=== PATIENT | male | born 1930 | race Caucasian/White ===

== ENCOUNTER 2019-06-05 07:46 | Inpatient (IN) | payer OTHER ==
[~2019-06-05] VITALS: Ht 160 cm; Wt 58.1 kg
[2019-06-05] VITALS (58 sets, daily range): BP systolic 65–141; BP diastolic 30–78
[~2019-06-05 07:46] MED LIST: AEROBID7 GM INH; ALLOPURINOL 10100 M2 PO; AMLODIPINE BESY10 MG PO; ASPIRIN81 M2 PO; AUGMENTIN 875875 M1; AZITHROMYCIN 2250 MG PO; CALAN; CARVEDILOL12.5 MG PO; CEFUROXIME250 MG PO; CLARITIN10 MG PO; CLONIDINE; COLACE 100 MG100 MG PO; COLACE100 MG; COLACE100 MG PO; COZAAR100 MG PO; FERROUS GLUCON324 M3 PO; FLAGYL500 MG; FLONASE 0.05%50 MCG NASAL; FOLIC ACID1 MG PO; HYDROCODON-ACE1 EACH PO; IBUPROFEN 400400 M2 PO; LASIX 40 MG TAB40 M2 PO; LISINOPRIL; Melatonin 5MG CAPSUL PO; NASAL SPRAY30 M1; NORCO 5-325 TA1 EACH; NYSTATIN-TRIAMC15 G1 TOP; OCUVITE TABLET1 EAC1 PO; OMEPRAZOLE; OMEPRAZOLE 20 M20 M1 PO; PRED FORTE 1% EY5 M1 OPHTHALMIC; PREDNISONE 20 M20 MG PO; PROAIR HFA8.5 GM INH; PROMACTA25 MG PO; SINGULAIR; SINGULAIR 10 MG10 M1 PO; STIOLTO RESPIMAT4 GM; TRAMADOL 50 MG50 MG PO; VERAPAMIL ER240 MG PO; VITAMIN B-12500 MCG PO; ZESTRIL20 MG
[2019-06-05 08:48] LABS: MCH 35.7 pg (26.0-34.0); MCHC 30.4 g/dL (28.0-37.0); MCV 117.3 fL (80.0-100.0); MPV 9.8 fl. (7.2-11.1); NUCLEATED RBCS 0 /100WBC; PLATELET COUNT* 211 thou/uL (150-400); RBC 1.12 mil/uL (4.50-6.00); RDW-CV 25.1 % (10.5-14.5); WBC 11.8 thou/uL (4.0-11.0)
[2019-06-05 08:57] LABS: CALCIUM 8.1 mg/dL (8.5-10.1); POTASSIUM 5.1 mmol/L (3.5-5.1)
[2019-06-05 08:58] LABS: INR 1.4; PROTIME 14.1 Seconds (9.20-11.50)
[2019-06-05 08:59] LABS: HEMATOCRIT 13.2 % (42.0-52.0)
[2019-06-05 09:13] LABS: MAGNESIUM 2.3 mg/dL (1.8-2.4); TOTAL BILIRUBIN 4.5 mg/dL (<0.1-1.0); TOTAL PROTEIN 7.4 g/dL (6.4-8.2)
[2019-06-05 09:15] LABS: TROPONIN-I LEVEL 0.61 ng/mL (<0.06)
[2019-06-05 09:44] LABS: URINE BILIRUBIN NEGATIVE (Negative); URINE BLOOD NEGATIVE (Negative); URINE CLARITY CLEAR; URINE COLOR YELLOW; URINE GLUCOSE-RANDOM NEGATIVE (Negative); URINE KETONES NEGATIVE (Negative); URINE LEUKOCYTES-REFLEX NEGATIVE (Negative); URINE NITRITE-REFLEX NEGATIVE (Negative); URINE PROTEIN NEGATIVE (Negative); URINE UROBILINOGEN 0.2 E.U./dl (0.2-1.0)
--- NOTE | 2019-06-05 10:35 | NUR ---
PICC LINE PLACED BY RACHEL SMILEY
[2019-06-05 10:55] LABS: ABSOLUTE LYMPHOCYTES 0.2 thou/uL (0.8-5.3); ABSOLUTE MONOCYTES 0.1 thou/uL (0.0-1.2); ABSOLUTE NEUTROPHILS 11.4 thou/uL (1.6-8.1); MYELOCYTES 2 %; PLATELET ESTIMATE ADEQUATE
[2019-06-05 10:56] LABS: HYPOCHROMASIA 3+; POLYCHROMASIA 1+
[2019-06-05 10:57] LABS: ANISOCYTOSIS 3+; MACROCYTES Occasional; POIKILOCYTOSIS 1+
[2019-06-05 14:17] LABS: HEMATOCRIT 22.6 % (42.0-52.0); HEMOGLOBIN 7.4 gm/dL (14.0-18.0)
--- NOTE | 2019-06-05 14:57 | NUR ---
RIGHT BASILIC VESSEL ACCESSED FOR TRIPLE LUMEN PICC. LINE PRE-TRIMMED TO 35CM AND ADVANCED TO THE ZERO CASSANDRA WITH NO RESISTANCE MET. UPPER ARM CIRCUMFERENCE ABOVE INSERTION SITE= 9". SHERLOCK MAGNET AND 3CG CONFIRMATION OF TIP TERMINATING AT THE CAVOATRIAL JUNCTION APPRECIATED. STYLET REMOVED, LINE FLUSHED AND INSERTINO SITE DRESSED. REPORT GIVEN TO JOVANNA RAMOS.
[2019-06-05 16:04] LABS: ABSOLUTE LYMPHOCYTES 0.3 thou/uL (0.8-5.3); ABSOLUTE NEUTROPHILS 15.3 thou/uL (1.6-8.1); BASOPHILS 0.1 %; HEMATOCRIT 21.6 % (42.0-52.0); LYMPHOCYTES 1.8 %; MCHC 32.2 g/dL (28.0-37.0); MONOCYTES 11.1 %; NUCLEATED RBCS 1 /100WBC; PLATELET COUNT* 215 thou/uL (150-400); RBC 2.11 mil/uL (4.50-6.00); RDW-CV 19.9 % (10.5-14.5); WBC 17.6 thou/uL (4.0-11.0)
[2019-06-05 16:09] LABS: MCV 102.4 fL (80.0-100.0)
--- NOTE | 2019-06-05 17:28 | 2DMMODE ---
[place] [address] 2 D/M-MODE ECHOCARDIOGRAM Name: RAFA PEÑA Room: [address] IN [facility]#: [id number] Admission: 06/05/19 Attend Phys: Darin Styles Discharge: Date of : [birth year] Date of Service: 06/05/19 1728 Report #: [id number] THIS REPORT FOR: //name// APPROVED REPORT Study performed: 06/05/2019 14:11:09 EXAM: Comprehensive 2D, Doppler, and color-flow Echocardiogram Patient Location: Bedside BSA: 1.57 HR: 71 bpm BP: 141/55 mmHg Other Information Study Quality: Technically Difficult Technically limited study due to inability to position patient, uncooperative patient. Indications Dyspnea Elevated Troponin 2D Dimensions IVSd: 8.40 (7-11mm) LVOT Diam: 16.16 (18-24mm) LVDd: 49.03 mm PWd: 9.50 (7-11mm) Ascending Ao: 24.14 (22-36mm) LVDs: 31.39 (25-40mm) Aortic Root: 24.40 mm Volumes Left Atrial Volume (Systole) LA ESV Index: 38.70 mL/m2 Aortic Valve AoV Peak Andrew.: 1.02 m/s AO Peak Gr.: 4.15 mmHg LVOT Max P.98 mmHg AO Mean Gr.: 1.73 mmHg LVOT Mean P.86 mmHg LVOT Max V: 0.70 m/s AO V2 VTI: 19.53 cm LVOT Mean V: 0.43 m/s MIGUE (VTI): 1.77 cm2 LVOT V1 VTI: 16.86 cm Mitral Valve E/A Ratio: 1.71 MV Decel. Time: 134.36 [place] [address] 2 D/M-MODE ECHOCARDIOGRAM Name: RAFA PEÑA Room: [address] IN [facility]#: [id number] Admission: 06/05/19 Attend Phys: Darin Styles Discharge: Date of : [birth year] Date of Service: 06/05/19 1728 Report #: [id number] MV E Max Andrew.: 1.13 m/s MV PHT: 38.97 ms MVA (PHT): 5.65 cm2 TDI E/Lateral E': 16.14 E/Medial E': 8.07 Medial E' Andrew.: 0.14 m/s Lateral E' Andrew.: 0.07 m/s Pulmonary Valve PV Peak Andrew.: 0.98 m/s PV Peak Gr.: 3.82 mmHg Tricuspid Valve RAP Estimate: 5.00 mmHg TR Peak Gr.: 63.76 mmHg RVSP: 68.76 mmHg PA Pressure: 68.76 mmHg Left Ventricle The left ventricle is normal size. septal hypokinesis is noted There is normal left ventricular wall thickness. Left ventricular systolic function is mildly decreased. LVEF is 45-50%. Right Ventricle The right ventricle is normal size. The right ventricular systolic function is normal. Atria Left atrium is mildly dilated. Interatrial septum not well visualized. Right atrium is dilated. Aortic Valve Mild aortic valve sclerosis. No aortic regurgitation is present. There is no aortic valvular stenosis. Mitral Valve Moderate mitral annular calcification. Mild mitral regurgitation. No evidence of mitral valve stenosis. Tricuspid Valve The tricuspid valve is normal in structure. Moderate tricuspid regurgitation. Moderate pulmonary hypertension. Pulmonic Valve The pulmonary valve is normal in structure. Mild to moderate [place] [address] 2 D/M-MODE ECHOCARDIOGRAM Name: RAFA PEÑA Room: [address]#: [id number] Admission: 06/05/19 Attend Phys: Darin Styles Discharge: Date of : [birth year] Date of Service: 06/05/19 1728 Report #: [id number] Great Vessels The aortic root is normal in size. IVC is not visualized. Pericardium Mild posterior pericardial effusion. <Conclusion> The left ventricle is normal size. There is normal left ventricular wall thickness. Left ventricular systolic function is mildly decreased. LVEF is 45-50%. The right ventricle is normal size. Left atrium is mildly dilated. Mild aortic valve sclerosis. No aortic regurgitation is present. There is no aortic valvular stenosis. Moderate mitral annular calcification. Mild mitral regurgitation. The tricuspid valve is normal in structure. Moderate tricuspid regurgitation. Moderate pulmonary hypertension. Mild posterior pericardial effusion. septal hypokinesis is noted <ELECTRONICALLY SIGNED> By: Brenden Green MD, [facility] 06/05/191727 27 27 Brenden Green MD, FAC /INF
--- NOTE | 2019-06-05 18:10 | NUR ---
VSS.COMMERCIAL LITIGATION PARALEGAL IN PLACE NOW TRACING SR.PT REMAINS ON 2L O2 NC.RIGHT UPPER ARM PICC PATENT WITH IVF INFUSING PER ORDERS.TITRATED OFF LEVOPHED THROUGHOUT SHIFT.PT RECEIVED BLOOD TRANSFUSION X2 THIS SHIFT.DONALD SECURE AND PATENT.ECHO COMPLETED.NO C/O PAIN.PT IS NOW ALERT,CALM ,AND COOPERATIVE BUT HARD OF HEARING.PT AND FAMILY INFORMED OF PLAN OF CARE AND COMMUNICATES UNDERSTANDING.HOURLY ROUNDING COMPLETED.CALL LIGHT AND FALL PRECAUTIONS IN PLACE.WILL CONTINUE TO MONITOR FOR DURATION OF SHIFT.
[2019-06-06] VITALS (23 sets, daily range): BP systolic 98–124; BP diastolic 39–60
[2019-06-06 03:52] LABS: ABSOLUTE LYMPHOCYTES 0.2 thou/uL (0.8-5.3); ABSOLUTE MONOCYTES 0.1 thou/uL (0.0-1.2); ABSOLUTE NEUTROPHILS 11.2 thou/uL (1.6-8.1); BASOPHILS 0.1 %; LYMPHOCYTES 1.9 %; MCHC 31.9 g/dL (28.0-37.0); MCV 103.2 fL (80.0-100.0); MONOCYTES 1.1 %; MPV 10.4 fl. (7.2-11.1); NUCLEATED RBCS 1 /100WBC; PLATELET COUNT* 202 thou/uL (150-400); POLYS 96.9 %; RBC 2.13 mil/uL (4.50-6.00); RDW-CV 21.2 % (10.5-14.5); WBC 11.5 thou/uL (4.0-11.0)
[2019-06-06 04:17] LABS: ALBUMIN 2.7 g/dL (3.4-5.0); CALCIUM 7.2 mg/dL (8.5-10.1); CREATININE 2.6 mg/dL (0.6-1.3); POTASSIUM 4.7 mmol/L (3.5-5.1); TOTAL BILIRUBIN 2.1 mg/dL (<0.1-1.0); TOTAL PROTEIN 6.4 g/dL (6.4-8.2)
[2019-06-06 04:25] LABS: ALBUMIN 2.6 g/dL (3.4-5.0); CALCIUM 6.8 mg/dL (8.5-10.1); CREATININE 2.6 mg/dL (0.6-1.3); MAGNESIUM 2.4 mg/dL (1.8-2.4); PHOSPHORUS* 7.1 mg/dL (2.5-4.9); POTASSIUM 4.3 mmol/L (3.5-5.1)
--- NOTE | 2019-06-06 09:05 | CON ---
[address] [address] CONSULTATION Name: RAFA PEÑA Room: [address] IN [facility]#: [id number] Admission: 06/05/19 Attend Phys: Tejinder Cheema Discharge: Date of : [birth year] Report #: [id number] THIS REPORT FOR: //name// CC: FAM unknown [facility] Darin Styles DATE OF SERVICE: 06/05/2019 HEMATOLOGY/ONCOLOGY CONSULTATION REASON FOR CONSULTATION: Severe anemia. SUBJECTIVE: This is an 89-year-old male who is being evaluated for severe anemia. Most recent labs on 05/26/2019 was 5.0. However, back in between November and August, his hemoglobin has been stable around 9 g/dL per the family. No records were available. The patient was getting treatment which the family describes as chemotherapy injections 5 days in every 4 weeks for chronic leukemia. 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 The patient was not able to communicate during the visit today. He has been having major pain. He is receiving his second blood transfusion. Per the family, no obvious GI bleed has been noticed. He was found unresponsive per the . Currently, he is on Levophed. REVIEW OF SYSTEMS: Unable to be obtained. PAST MEDICAL HISTORY: Chronic leukemia, ischemic cardiomyopathy, renal failure. MEDICATIONS: Per admission list. SOCIAL HISTORY: No smoking, no alcohol abuse, no drug abuse. PAST SURGICAL HISTORY: Perforated diverticulitis, colostomy, hypertension, asthma, prostate cancer, appendectomy, hernia repair. ALLERGIES: No known allergies. FAMILY HISTORY: Noncontributory. PHYSICAL EXAMINATION: VITAL SIGNS: Today, temperature is 36.4, pulse 71, respirations 27, blood pressure is 141/55, SpO2 was 95% on 2 liters. GENERAL: The patient was lying in bed. He was having significant pain. He was not opening his eyes. Not responding to verbal commands. LUNGS: Positive crackles and coarse breathing sounds. HEART: Regular rate and S1, S2 [place] [address] CONSULTATION Name: RAFA PEÑA Room: [address] IN [facility]#: [id number] Admission: 06/05/19 Attend Phys: Tejinder Cheema Discharge: Date of : [birth year] Report #: [id number] ABDOMEN: Soft, nontender. EXTREMITIES: No edema, no cyanosis, no clubbing. LABORATORY DATA: Today 11.8, hemoglobin is 4.0, MCV is 117, and platelets 211. Differential showed anisopoikilocytosis with macrocytosis. PT is 14.1. Creatinine is 3.0. Lactic acid 7.4, bilirubin is 4.5, AST is 289, ALT is 183. IMAGING: A CT abdomen showed no acute intraabdominal or pelvic process is seen. Chest x-ray, right basilar infiltrates. Pulmonary venous prominence without vascular congestion. ASSESSMENT AND PLAN: The patient is an 89-year-old male who has been treated 8 months ago with subcutaneous injections of chemotherapy, probably the patient had chronic leukemia CMMoL treated with Vidaza, was evaluated today because of severe anemia, not obvious GI bleed. I do suspect the patient even has a progression of his disease or transformation to acute leukemia; however, considering his age, comorbidities and current clinical condition, I would like to hold obtaining a bone marrow biopsy. Priority should be supportive care by transfusion and stabilizing the patient, and treat with empiric antibiotics. Questions have been answered. <ELECTRONICALLY SIGNED> By: Ronnie Alcazar MD 06/06/1905 1312 [id number] Alcazar MD /nt
--- NOTE | 2019-06-06 10:48 | NUR ---
Nutrition: Pt admitted with ARF. Labs: BUN 89, cr 2.6, BNP 77361, alb 2.6, prealb 20, Hgb 7.4. More awake today. 2gm Na diet, poor apptite/intake. Wt stable at 129#. RX: lasix, folic acid, Fe. Hx prostate cancer, [place]. Per RN, pt may benefit from comfort care. He has had Felix in past for his ulcer; RD will order for once a day, hopeful for better po intake. No other nutrition interventions at this time. Encourage good po intake. Mild risk.
--- NOTE | 2019-06-06 11:42 | NUR ---
PT KNOWN TO CASE MELANIE FROM PREVIOUS ADMISSION. PT LIVES AT HOME WITH HIS . HE HAS HOME O2 THAT WAS ARRANGED THRU [facility] HE IS CURRENTLY ON SERVICE WITH [facility]. [facility] GOES TO [facility]. CASE MELANIE WILL CONTINUE TO FOLLOW.
--- NOTE | 2019-06-06 14:49 | CON ---
[address] [address] CONSULTATION Name: RAFA PEÑA Room: [address] IN .R.#: [id number] Admission: 06/05/19 Attend Phys: Tejinder Cheema Discharge: Date of : [birth year] Report #: [id number] THIS REPORT FOR: //name// CC: FAM unknown [facility] Darin Styles CONSULTING PHYSICIAN: Darin Styles DO REASON FOR CONSULTATION: Acute kidney injury. HISTORY OF PRESENT ILLNESS: An 89-year-old gentleman who has a history of CML, was admitted with hypovolemic shock and hemoglobin of 4. He has a history of CML and requires frequent blood transfusions. He normally gets his care at the [facility]. I am asked to see him because of a rise in his serum creatinine at 3.0 here on admission; on 05/31 it was 1.5. He does not recall having any history of chronic kidney disease. His family actually is at the bedside and helps provide much of the history. He does not have an outpatient light rail transit operator. He did have some low blood pressure on admission, he was also on Lasix. REVIEW OF SYSTEMS: Constitutional, psych, heme, eyes, ENT, respiratory, cardiac, GI, , endocrine, all negative except as documented above and as best as can be ascertained. PAST MEDICAL HISTORY: CML, history of perforated diverticulitis requiring colostomy, hypertension, GERD, asthma, prostate cancer, history of appendectomy and DJD. SOCIAL HISTORY: No tobacco. FAMILY HISTORY: Not pertinent in this 89-year-old gentleman. PHYSICAL EXAMINATION: VITAL SIGNS: Blood pressure 141/55, pulse 71, respirations 27, temperature 36.4. GENERAL: No acute distress. EYES: Open. EARS: Externally normal. NECK: Supple. CARDIOVASCULAR: Regular rate. LUNGS: Diminished breath sounds. ABDOMEN: Soft. MUSCULOSKELETAL: Nontender. PSYCHIATRIC: Awake, alert. NEUROLOGIC: Hard of hearing. LABORATORY DATA: White cell count 11.8, hemoglobin was 4, up to 7.4 [place] [address] CONSULTATION Name: RAFA PEÑA Room: [address] IN [facility]#: [id number] Admission: 06/05/19 Attend Phys: Tejinder Cheema Discharge: Date of : [birth year] Report #: [id number], Platelets 211. Sodium 137, potassium 5.1, chloride 102, bicarbonate 15, BUN 86, creatinine 3, glucose 100, calcium 8.1, albumin 3. ASSESSMENT: 1. Acute kidney injury in the setting of severe anemia with a hemoglobin of 4. CT scan did not reveal any evidence of hydronephrosis. His UA was okay. He was on Lasix as an outpatient, had low blood pressures. On 05/31/2019, creatinine was 1.5. 2. Chronic kidney disease stage 3, baseline creatinine about 1.5-1.6, no outpatient light rail transit operator. 3. History of nonischemic cardiomyopathy. 4. History of chronic myelogenous leukemia, requiring frequent transfusions. 5. Metabolic acidosis. PLAN: 1. Currently on antibiotics. 2. On Levophed. 3. Sims catheter to be placed. Urology was consulted due to difficulty with placing Sims. 4. We will give 1 amp of sodium bicarbonate. 5. Check a.m. lab including a chest x-ray. Thank you for requesting my opinion in the care and management of this patient. <ELECTRONICALLY SIGNED> By: Daron Rojas MD 06/06/19 1449 1600 [id number] Rojas MD /nt
--- NOTE | 2019-06-06 15:37 | NUR ---
1530 ASSUMED CARE OF PATIENT FROM [facility] AND INTRODUCED NURSE TO PATIENT AND FAMILY
--- NOTE | 2019-06-06 16:41 | EKG ---
[place] [address] ELECTROCARDIOGRAM REPORT Name: CASE,RAFA Felix Room: [address] ADM IN .R.#: [id number] Admission: 06/05/19 Attend Phys: Tejinder Cheema Discharge: Date of : [birth year] Report #: [id number] THIS REPORT FOR: //name// [facility] ED Test Date: 2019-06-05 Test Time: 07:56:43 Pat Name: RAFA PEÑA Department: Room: [facility] Gender: M Residential Program Director: : 1930 Requested By: Winnie Chapa Order Number: [id number] MD: Rafat Ayala Measurements Intervals [place] Rate: 83 P: GA: QRS: -4 QRSD: 115 T: 72 QT: 439 QTc: 516 Interpretive Statements Atrial fibrillation Multiple ventricular premature complexes Nonspecific intraventricular conduction delay Low voltage, extremity leads Minimal ST depression, lateral leads Compared to ECG 05/30/2019 01:13:39 ST (T wave) deviation now present Sinus rhythm no longer present Electronically Signed On 06-06-2019 16:40:52 CDT by Rafat Ayala [email or web address] <ELECTRONICALLY SIGNED> By: Rafat Ayala MD, FACC 06/06/19 1640 [id number] [id number] Rafat Ayala MD, [facility] /EPI
[2019-06-06 17:22] LABS: ABSOLUTE LYMPHOCYTES 0.2 thou/uL (0.8-5.3); ABSOLUTE MONOCYTES 0.2 thou/uL (0.0-1.2); BASOPHILS 0.2 %; HEMATOCRIT 21.9 % (42.0-52.0); LYMPHOCYTES 1.8 %; MCH 33.5 pg (26.0-34.0); MCHC 32.1 g/dL (28.0-37.0); MCV 104.1 fL (80.0-100.0); MONOCYTES 1.9 %; MPV 9.8 fl. (7.2-11.1); NUCLEATED RBCS 1 /100WBC; PLATELET COUNT* 199 thou/uL (150-400); POLYS 96.1 %; RDW-CV 23.6 % (10.5-14.5); WBC 11.4 thou/uL (4.0-11.0)
--- NOTE | 2019-06-06 17:47 | NUR ---
MINIMAL PROGRESS TOWARDS GOALS. DECLINES MOST ORAL INTAKE.C/O GENERALIZED PAIN.PAIN RELIEVED WITH ORAL MEDS. VSS. OFF PRESSORS. BANANA BAG DC'D BY NEPHROLOGY. PLAN IS FOR EGD TOMORROW. FAMILY HAS BEEN AT BEDSIDE
[2019-06-07] VITALS (79 sets, daily range): BP systolic 85–129; BP diastolic 35–82
[2019-06-07 01:14] LABS: ABSOLUTE LYMPHOCYTES 0.2 thou/uL (0.8-5.3); ABSOLUTE MONOCYTES 0.1 thou/uL (0.0-1.2); ABSOLUTE NEUTROPHILS 9.7 thou/uL (1.6-8.1); BASOPHILS 0.1 %; HEMATOCRIT 22.5 % (42.0-52.0); HEMOGLOBIN 7.3 gm/dL (14.0-18.0); LYMPHOCYTES 1.7 %; MCH 34.1 pg (26.0-34.0); MCHC 32.4 g/dL (28.0-37.0); MCV 105.4 fL (80.0-100.0); MONOCYTES 1.4 %; MPV 9.9 fl. (7.2-11.1); NUCLEATED RBCS 2 /100WBC; PLATELET COUNT* 193 thou/uL (150-400); POLYS 96.8 %; RBC 2.13 mil/uL (4.50-6.00); RDW-CV 23.8 % (10.5-14.5)
[2019-06-07 04:48] LABS: ALBUMIN 2.5 g/dL (3.4-5.0); CREATININE 2.3 mg/dL (0.6-1.3); POTASSIUM 4.5 mmol/L (3.5-5.1); TOTAL BILIRUBIN 1.8 mg/dL (<0.1-1.0); TOTAL PROTEIN 6.5 g/dL (6.4-8.2)
--- NOTE | 2019-06-07 06:00 | NUR ---
RECEIVED REPORT AND ASSUMED CARE AT 1900. VSS. MONITORING IN PLACE. PT REPORTS PAIN. PRN MEDICATION PER EMAR. ASSESSMENT COMPLETED CHARTED. DISCUSSED PLAN OF CARE WITH PT. VERBALIED UNDERSTANDING. BED LOCKED IN LOWEST POSITION, CALL LIGHT WITHIN REACH, BED ALARM ON. PT BEDREST/ 2.5L NC. POSITION CHANGE ENCOURAGED. PT COMPLIANT WITH TURNING PART OF SHIFT. REFUSED AT TIMES. EDUCATED ON RISK/ PT ADMITTED WITH WOUND/ PT EDUCATED ON NEED FOR OFF LOADING. PT VERBALIZED UNDERSTANDING. STILL REFUSING AT TIMES. POSITION CHANGE ENCOURAGED. HOURLY ROUNDING COMPLETED AND ALL NEEDS MET.
[2019-06-07 07:09] LABS: MAGNESIUM 2.5 mg/dL (1.8-2.4); PHOSPHORUS* 5.3 mg/dL (2.5-4.9)
--- NOTE | 2019-06-07 10:22 | NUR ---
WOUND CARE NOTE: CONSULT RECEIVED FOR SACRAL WOUND. PATIENT KNOWN TO ME FROM PREVIOUS HOSPITAL STAY. AT THAT TIME, THE PATIENT HAD A CANDIDIA RASH/INFECTION TO THE SACRAL AREA EXTENDING TO THE ANUS AND BETWEEN HIS THIGHS. THIS IS RESOLVING, REMAINS MORE PINK THAN THE SURROUNDING TISSUE. BUT THE PREVIOUS ULCERATIONS ARE SCABBED OVER AND HEALING. PATIENT NOW HAS A DEEP TISSUE INJURY ON HIS SACROCOCCYGEAL REGION MORE ON THE RIGHT THAN THE LEFT. AREA MEASURES 4.5X4.5X0.1. PURPLE/MAROON DISCOLORATION, MACERATED AND STARTING TO OPEN. CLEANSED WELL. APPLIED BARRIER OINTMENT AND KEPT PATIENT ON HIS LEFT SIDE. PATIENT ALSO HAS REDDENED AREAS TO HIS THROACIC SPINE AND RIBS, BUT THESE CAMILLE. EDUCATED PATIENT AND DAUGHTER ON NEED FOR KEEPING OFF AREA. EDUCATED THAT THE PREVIOUS CONCERN IS RESOLVING WELL, BUT HE NOW HAS A PRESSURE ULCER. EDUCATED THAT SIDE TO SIDE TURNING IS BEST. BOTH COMMUNICATED UNDERSTANDING. PATIENT STATED TO JUST TURN HIM WHEN WE NEED TO. DAUGHTER DESIRES FOR US TO KEEP HIM COMFORTABLE WITH MEDICATION SO HE CAN BE MORE COMPLIANT WITH TURNS. TALKED ABOUT IF HE IS IN PAIN HE IS MORE GRUMPY. PATIENT IS GOING FOR A GI PROCEEDURE. ANESTHESIOLOGY WAS IN TO ASSESS PATIENT, NOTIFIED THAT THE PATIENT HAS A SACRAL WOUND. RECOMMEND TURN Q2 HOURS AND MORE FREQUENTLY IF ABLE, SIDE TO SIDE WITH WEDGES OR PILLOWS. KEEP WOUND OFFLOADED. BARRIER OINTMENT BID AND PRN INCONTINENCE LIMIT LAYERS OF LINEN UNDER PATIENT LIMIT HOB <30 DEGREES CONTINUE WITH SHAMA MATTRESS-IF TRANSFERS UNITS WILL NEED A SHAMA MATTRESS ORDERED ENCOURAGE GOOD NUTRTION/HYDRATION ONCE ABLE
[2019-06-07 17:24] LABS: HEMATOCRIT 22.8 % (42.0-52.0); HEMOGLOBIN 7.3 gm/dL (14.0-18.0); MCH 34.6 pg (26.0-34.0); MCHC 31.9 g/dL (28.0-37.0); MCV 108.6 fL (80.0-100.0); MPV 10.3 fl. (7.2-11.1); NUCLEATED RBCS 2 /100WBC; PLATELET COUNT* 188 thou/uL (150-400); RDW-CV 24.8 % (10.5-14.5); WBC 10.2 thou/uL (4.0-11.0)
--- NOTE | 2019-06-07 17:33 | NUR ---
VSS.CANDY ATTENDANT IN PLACE TRACING LALITA.PT REMAINS ON 3L O2 NC.RIGHT UPPER ARM PICC SECURE AND PATENT.PAIN MANAGED WELL WITH MEDICATIONS.DONALD SECURE AND PATENT.EGD COMPLETED.PT TOLERATING REGULAR DIET.PT AND FAMILY INFORMED OF PLAN OF CARE AND COMMUNICATES UNDERSTANDING.PT LEFT RESTING IN BED WITH Q2 HOUR POSITION CHANGES COMPELTED.WILL CONTINUE TO MONITOR FOR DURATION OF SHIFT.
[2019-06-07 19:04] LABS: ABSOLUTE LYMPHOCYTES 0.4 thou/uL (0.8-5.3); ABSOLUTE MONOCYTES 0.4 thou/uL (0.0-1.2); ABSOLUTE NEUTROPHILS 9.4 thou/uL (1.6-8.1)
[2019-06-07 19:05] LABS: ANISOCYTOSIS 2+; HYPOCHROMASIA 1+; MACROCYTES 1+; PLATELET ESTIMATE ADEQUATE
[2019-06-07 19:07] LABS: MICROCYTES Occasional
[2019-06-08] VITALS: BP 127/64
[2019-06-08 03:00] VITALS: BP 120/56
[2019-06-08 04:01] VITALS: BP 114/59
[2019-06-08 04:55] LABS: ABSOLUTE LYMPHOCYTES 0.1 thou/uL (0.8-5.3); ABSOLUTE MONOCYTES 0.1 thou/uL (0.0-1.2); ABSOLUTE NEUTROPHILS 7.7 thou/uL (1.6-8.1); BASOPHILS 0.1 %; HEMATOCRIT 21.9 % (42.0-52.0); HEMOGLOBIN 7.1 gm/dL (14.0-18.0); LYMPHOCYTES 1.7 %; MCH 34.8 pg (26.0-34.0); MCHC 32.2 g/dL (28.0-37.0); MONOCYTES 1.6 %; MPV 10.1 fl. (7.2-11.1); NUCLEATED RBCS 2 /100WBC; PLATELET COUNT* 164 thou/uL (150-400); POLYS 96.6 %; RBC 2.03 mil/uL (4.50-6.00); RDW-CV 24.7 % (10.5-14.5)
--- NOTE | 2019-06-08 05:07 | NUR ---
RECEIVED REPORT AND ASSUMED CARE AT 1900. VSS. MONITORING IN PLACE. PT REPORTS PAIN, PRN MEDICATION ADMIN PER ORDERS. ASSESSMENT COMPLETED CHARTED. BED LOCKED IN LOWEST POSITION, CALL LIGHT WITHIN REACH, BED ALARM ON. PT STATES HE "FEELS SO MUCH BETTER THAN BEFORE" POSITION CHANGED EVERY TWO HOURS, HEELS OFF LOADED. HOURLY ROUNDING COMPLETED AND ALL NEEDS MET.
[2019-06-08 05:35] LABS: ALBUMIN 2.6 g/dL (3.4-5.0); CALCIUM 7.3 mg/dL (8.5-10.1); CREATININE 1.8 mg/dL (0.6-1.3); POTASSIUM 4.4 mmol/L (3.5-5.1); TOTAL BILIRUBIN 2.1 mg/dL (<0.1-1.0); TOTAL PROTEIN 6.6 g/dL (6.4-8.2)
[2019-06-08 08:00] VITALS: BP 108/48
--- NOTE | 2019-06-08 08:00 | NUR ---
VSS.GRILL ATTENDANT IN PLACE.PT REMAINS ON 2L O2 NC.NO C/O PAIN.RIGHT UPPER ARM PICC PATENT AND SECURE.DONALD SECURE AND PATENT.Q2 HOUR POSITION CHANGES.PT TO TRANSFER TO TELE FLOOR.PT AND FAMILY INFORMED OF PLAN OF CARE AND COMMUNICATES UNDERSTANDING.ALL PERSONAL BELONGINGS PACKED AND TAKEN WITH THE PT TO ROOM 202.
[2019-06-08 09:23] LABS: ABSOLUTE LYMPHOCYTES 0.2 thou/uL (0.8-5.3); ABSOLUTE MONOCYTES 0.1 thou/uL (0.0-1.2); ABSOLUTE NEUTROPHILS 8.7 thou/uL (1.6-8.1); BASOPHILS 0.1 %; HEMATOCRIT 22.4 % (42.0-52.0); HEMOGLOBIN 7.2 gm/dL (14.0-18.0); MCH 34.7 pg (26.0-34.0); MCHC 32.2 g/dL (28.0-37.0); MCV 107.6 fL (80.0-100.0); MONOCYTES 1.3 %; NUCLEATED RBCS 2 /100WBC; PLATELET COUNT* 179 thou/uL (150-400); POLYS 96.6 %; RBC 2.08 mil/uL (4.50-6.00); RDW-CV 24.4 % (10.5-14.5)
--- NOTE | 2019-06-08 12:43 | NUR ---
ASSUMED PT CARE AT APPROX 1200, REPORT TAKEN FROM RACHEL GOLD. THIS NURSE CONFIRMS AND AGREES WITH PREVIOUS NURSES ASSESSMENT. PT UP IN RECLINER, FAMILY AT BEDSIDE.
[2019-06-08 16:23] VITALS: BP 136/63
[2019-06-08 20:41] VITALS: BP 107/60
[2019-06-09] VITALS (7 sets, daily range): BP systolic 124–174; BP diastolic 56–86
[2019-06-09 04:37] LABS: HEMATOCRIT 22.1 % (42.0-52.0); MCH 33.6 pg (26.0-34.0); MCHC 30.8 g/dL (28.0-37.0); MPV 9.9 fl. (7.2-11.1); RBC 2.03 mil/uL (4.50-6.00); RDW-CV 24.9 % (10.5-14.5); WBC 12.6 thou/uL (4.0-11.0)
[2019-06-09 04:52] LABS: ALBUMIN 2.6 g/dL (3.4-5.0); CALCIUM 7.9 mg/dL (8.5-10.1); CREATININE 1.6 mg/dL (0.6-1.3); MAGNESIUM 2.5 mg/dL (1.8-2.4); POTASSIUM 4.3 mmol/L (3.5-5.1); TOTAL BILIRUBIN 2.2 mg/dL (<0.1-1.0); TOTAL PROTEIN 6.5 g/dL (6.4-8.2)
[2019-06-09 04:58] LABS: HEMOGLOBIN 6.8 gm/dL (14.0-18.0)
--- NOTE | 2019-06-09 08:20 | NUR ---
PT IS ABLE TO COMMUNICATE HIS NEED TO STAFF WITH SOME DIFFICULTY; HE IS VERY [id number] AND FORGETFUL AT TIMES WELL. CURRENT PAIN MEDICATION REGIMEN HAS BEEN ADEQUATE FOR CONTROLLING HIS PAIN UP TO THIS TIME. SHABANA IS PATENT. PT NOW ON LOW AIR LOSS MATTRESS. CODE STATUS IS DNR.
--- NOTE | 2019-06-09 09:38 | NUR ---
ASSUMED CARE OF PT THIS AM AROUND 0715- RELIEF COOK IN PLACE ORDERED, TRACING SR WITH PVC- UPON ASSESSMENT PT NOTED TO BE RESTING IN BED- PT A&O X4, FORGETFULL AND NOTED WITH ANXIETY- DONALD IN PLACE AND D/D CLEAR NEEL URINE, CONT OF BOWEL- BED REST WITH Q2 HOUR TURNS IN PLACE INDICATED- AIR MATTRESS IN PLACE- DIMINISHED LUNG SOUNDS, DYSPNEA NOTED ON EXERTION-VSS, O2 SAT 98% ON 3L VIA NC- PT C/O INCREASED COUGH, REQUESTING PHYSICAIN DO SOMETHING TO DRY HIM UP THIS AM- NOTED INCREASED COUGH WITH BREAKFAST THIS AM, ST EVAL INITIATED-ABD SOFT/ROUND/NON-TENDER, BS X 4 QUADS- LAST BM REPORTED 06/08/19- RIGHT UPPER EXT TRIPLE LUMEN PICC NOTED INTACT- HGB NOTED AT 6.8 THIS AM, ORDERS TO TRANSFUSE 1 UNIT RBC NOTED THIS AM, 40MG IV LASIX TO BE GIVEN WITH TRANSFUSSION- BARRIOR CREAM TO COCCYX INDICATED- CALL LIGHT AND PERSONAL BELONGINGS WITH IN REACH- HOURLY ROUNDS IN PLACE R/T SAFETY/NEEDS- ALL NEEDS MET AT THIS TIME-WCTM
--- NOTE | 2019-06-09 16:55 | NUR ---
PT CURRENLTY RESTING IN BED- CAR AUDIO INSTALLER IN PLACE ORDERED, TRACING ST WITH PVC- RIGHT UE PICC NOTED INTACT AND ARIANNA ALLEN CURRENTLY INFUSSING PRESCIBED- HGB THIS AM NOTED AT 6.8, 1 UNIT RBC GIVEN WITH POST HBG NOTED TO IMPROVE TO 9.0-PT PRE-MEDICATED PRIOR TO TRANSFUSSION R/T ANTIBODY'S WITH BLOOD WITH BENADRLY IV AND SOLU-MED; PT NOTED TO TOLERATE WELL- LASIX PRE AND POST INFUSSION THIS SHIFT PRESCIBED- SHABANA NOTED WITH GOOD OUTPUT THIS SHIFT- POOR PO INTAKE NOTED THIS SHIFT- ST HERE TO ASSESS THIS SHIFT WITH DIET CHANGE TO MECHANICAL GROUND WITH THIN LIQUIDS-TYLENOL WITH CODEINE 1 TAB GIVEN AT 1240 R/T BACK/LEG PAIN, NOTED TO BE EFFECTIVE- CALL LIGHT AND PESONAL BELONGINGS WITH IN REACH-Q 2HOUR TURNS IN PLACE INDICATED- ALL NEEDS MET AT THIS TIME-WCTM
[2019-06-10] VITALS: BP 118/67; BP 171/65
--- NOTE | 2019-06-10 02:21 | NUR ---
[facility] ALERT [facility] AFTER TURN AT 2200 HR UP TO 130. PT VERY ANXIOUS TALKING ABOUT DYING. XANAX GIVEN. O2 SAT 80S. O2 INCREASED TO 5 LITERS NC. PT THEN FELT NAUSIATED. ZOFRAN GIVEN. DR CHEN NOTIFIED HR RETURNED TO ST 103. NOW SR 95. WILL CONTINUE TO MONITOR.
[2019-06-10 04:00] VITALS: BP 101/53
[2019-06-10 04:40] LABS: HEMOGLOBIN 8.2 gm/dL (14.0-18.0); MCH 34.6 pg (26.0-34.0); MCHC 32.8 g/dL (28.0-37.0); MCV 105.5 fL (80.0-100.0); MPV 10.1 fl. (7.2-11.1); RBC 2.37 mil/uL (4.50-6.00); RDW-CV 21.9 % (10.5-14.5)
[2019-06-10 05:14] LABS: ALBUMIN 2.6 g/dL (3.4-5.0); CREATININE 1.7 mg/dL (0.6-1.3); MAGNESIUM 2.2 mg/dL (1.8-2.4); TOTAL BILIRUBIN 2.1 mg/dL (<0.1-1.0); TOTAL PROTEIN 6.5 g/dL (6.4-8.2)
--- NOTE | 2019-06-10 06:40 | NUR ---
PT SCREENED + FOR SEPSIS. DR CHEN NOTIFIED. SHE WILL REVIEW.
[2019-06-10 08:17] VITALS: BP 115/57
--- NOTE | 2019-06-10 09:31 | NUR ---
ASSUMED CARE OF PT THIS AM AROUND 0715- SENIOR RESIDENT CARE DIRECTOR IN PLACE ORDERED, TRACING SR- UPON ASSESSMENT PT NOTED TO BE RESTING IN BED, EYES CLOSED- PT A&O 3-4 WITH NOTED FORGETFULLNESS- CONTINENT OF BOWEL, DONALD IN PLACE D/D CLEAR YELLOW URINE- Q [address] INDICATED- LCTA/DIMINISHED IN BASES- DYSPNEA NOTED-VSS, O2 SAT 95% ON 3L VIA NC- ABD SOFT/FLAT/NON-TENDER, BS X4 QUADS- FAIR PO INTAKE NOTED THIS AM WITH BREAKFAST- RUE PICC NOTED INTACT, DRESSING C/D/I- CHEST X-RAY COMPLETED THIS AM WITH RESULTS NOTED IN MEDITECH- BARRIOR CREAM TO COCCYX INDICATED-CALL LIGHT AND PERSONAL BELONGINGS WITH IN REACH- HOURLY ROUNDS IN PLACE R/T SAFETY/NEEDS- ALL NEEDS MET AT THIS TIME-WCTM
[2019-06-10] MEDS ORDERED: IPRAT-ALBUT 0.5-3 ML INH (11:26)
[2019-06-10] MEDS ORDERED: MSL20MG/ML PO (11:26)
[2019-06-10] MEDS ORDERED: ONDANSETRON HCL4 M2 PO (11:26)
[2019-06-10] MEDS ORDERED: ATIVAN1 MG PO (11:26)
[2019-06-10 11:39] VITALS: BP 109/59
[2019-06-10 12:38] VITALS: BP 109/59
--- NOTE | 2019-06-10 13:21 | NUR ---
DISCUSSED WITH DR CHEN, FAMILY NOW WANTING TO TAKE PT HOME WITH HOSPICE. MET WITH /LUZ. SHE WOULD LIKE TO TAKE PT HOME TODAY IF POSSIBLE. SEVERAL FAMILY MEMBERS IN ROOM AND SUPPORTIVE. THEY STATED COULD ASSIST WITH FURNITURE REARRANGING, ETC. DISCUSSED OPTIONS WITH , SHE WANTS TO USE [facility] SHE HAS TALKED WITH THEM IN PAST. CALLED [facility]. NURSE COMING OUT TO EVAL. OUTSIDE DNR SIGNED AND ON CHART. DR CHEN COMPLETED DC ORDERS. AWAIT HOSPICE EVAL AND WILL FINALIZE DC PLAN THEN
--- NOTE | 2019-06-10 16:00 | NUR ---
ORDERS RECIEVED THIS SHIFT FOR OKAY TO D/C HOME WITH HOSPICE CARE PER PT/FAMILY REQUEST- CM HERE TO ARRANGE FOR HOSPICE CARE WITH SUPPLIES DELIVERED TO HOME PRIOR TO D/C- HOSPICE NURSE HERE TO SPEAK WITH FAMILY WITH [facility]- RUE PICC D/C'D PRIOR TO D/C WITH TIP NOTED INTACT, PRESSURE APPLIED X5 MINS WITH GAUZE/TRANSPARENT DRESSING, FENT 50MCG PER PT REQUEST ADMINISTERED AT 1534 PRIOR TO D/C- FUNERAL HOME ASSISTANT D/C'D- D/C EDUCATION/TEACHING GIVEN TO PT MELISSA TO D/C WITH ALL QUESTIONS AND CONCERNS ADDRESSED- WRITTEN EDUCATION ALSO PROVIDED- DONALD TO REMAIN INTACT AND TIME OF D/C PER HOSPICE- EMS HERE TO TRANSFER PT AT 1605- PAPERWORK PROVIDED TO EMT- PT ESCORTED PER EMT, PER CART AT D/C OF 1607- PT NOTED TO TAKE BELONGINGS AT TIME OF D/C- NO PROBLEMS TO NOTE AT TIME OF D/C
--- NOTE | 2019-06-11 10:39 | EKG ---
[place] [address] ELECTROCARDIOGRAM REPORT Name: CASERAFA Room: [address] DIS IN ..#: [id number] Admission: 06/05/19 Attend Phys: Tejinder Cheema Discharge: 06/10/19 Date of : [birth year] Report #: [id number] THIS REPORT FOR: //name// [facility] Test Date: 2019-06-09 Test Time: 15:58:12 Pat Name: RAFA PEÑA Department: Room: [address] Gender: M Paper Baler: BEE : 1930 Requested By: Neetu Rodríguez Order Number: [id number] MD: Rafat Ayala Measurements Intervals [place] Rate: 103 P: 71 GA: 175 QRS: 45 QRSD: 106 T: 32 QT: 334 QTc: 437 Interpretive Statements Sinus tachycardia Unifocal premature ventricular contractions Low voltage, extremity leads Nonspecific ST segment depression Compared to ECG 06/05/2019 07:56:43 Atrial fibrillation no longer present Intraventricular conduction delay no longer present ST (T wave) deviation no longer present Electronically Signed On 06-11-2019 10:38:57 CDT by Rafat Ayala [email or web address] <ELECTRONICALLY SIGNED> By: Rafat Ayala MD, FACC 06/11/19 1038 1558 1558 Rafat Ayala MD, FACC /EPI
== END 2019-06-10 16:09 | disposition hospice, home (50) | DRG 871 ==
LOC: M.ERS 07:46 → M.ICU 09:33 → M.TBA-ER 09:33 → M.ICU 11:06 → M.2W 06-08 11:58
PROVIDERS: Emergency Medicine; Internal Medicine; Internal Medicine Nephrology; ADMIT Internal Medicine
DX: A41.9 Sepsis, unspecified organism (principal); J18.9 Pneumonia, unspecified organism; R57.1 Hypovolemic shock; G93.41 Metabolic encephalopathy; R57.0 Cardiogenic shock; K72.00 Acute and subacute hepatic failure without coma; E43 Unspecified severe protein-calorie malnutrition; C91.10 Chronic lymphocytic leukemia of B-cell type not having achieved remission; N17.9 Acute kidney failure, unspecified; E87.2 Acidosis; I13.0 Hypertensive heart and chronic kidney disease with heart failure and stage 1 through stage 4 chronic kidney disease, or unspecified chronic kidney disease; I50.22 Chronic systolic (congestive) heart failure; K21.9 Gastro-esophageal reflux disease without esophagitis; G89.29 Other chronic pain; J45.909 Unspecified asthma, uncomplicated; D64.9 Anemia, unspecified; R79.89 Other specified abnormal findings of blood chemistry; I25.5 Ischemic cardiomyopathy; M19.90 Unspecified osteoarthritis, unspecified site; N18.3 Chronic kidney disease, stage 3 (moderate); L89.899 Pressure ulcer of other site, unspecified stage; Z66 Do not resuscitate; N47.1 Phimosis; R74.0 Nonspecific elevation of levels of transaminase and lactic acid dehydrogenase [LDH]; R09.89 Other specified symptoms and signs involving the circulatory and respiratory systems; L89.159 Pressure ulcer of sacral region, unspecified stage; Z51.5 Encounter for palliative care; Z93.3 Colostomy status; Z90.79 Acquired absence of other genital organ(s); Z90.49 Acquired absence of other specified parts of digestive tract; Z85.46 Personal history of malignant neoplasm of prostate; Z79.899 Other long term (current) drug therapy; Z92.21 Personal history of antineoplastic chemotherapy; Z82.49 Family history of ischemic heart disease and other diseases of the circulatory system; Z68.22 Body mass index [BMI] 22.0-22.9, adult; Z80.8 Family history of malignant neoplasm of other organs or systems; Z87.891 Personal history of nicotine dependence